=== PATIENT | female | born 1975 | race Caucasian/White ===

== ENCOUNTER → 2024-07-07 07:50 | Outpatient (REF) | payer OTHER, SELFPAY | LOC: HWWDC 07:50 | PROVIDERS: ATTENDING PHYSICIAN Obstetrics & Gynecology | DX: Z12.31 Encounter for screening mammogram for malignant neoplasm of breast (principal) | CPT/HCPCS: 77063; 77067 ==

== ENCOUNTER → 2024-07-17 09:44 | Outpatient (REF) | payer OTHER, SELFPAY | LOC: WDC 09:44 | PROVIDERS: ATTENDING PHYSICIAN Obstetrics & Gynecology | DX: R92.8 Other abnormal and inconclusive findings on diagnostic imaging of breast (principal) | CPT/HCPCS: 76642 ==

== ENCOUNTER → 2025-02-24 13:57 | Outpatient (REF) | payer OTHER, SELFPAY | LOC: HWRAD 13:57 | PROVIDERS: ATTENDING PHYSICIAN Student in an Organized Health Care Education/Training Program | DX: N93.9 Abnormal uterine and vaginal bleeding, unspecified (principal) | CPT/HCPCS: 76830; 76856 ==

== ENCOUNTER 2025-04-03 05:51 | Day surgery (SDC) | payer OTHER, SELFPAY ==
[2025-03-31 08:05] LABS: Hematocrit 23.0 % (37.0-47.0); Hemoglobin 7.0 g/dL (12.0-16.0); Mean Corp Hgb Conc. 30.4 g/dL (33.0-37.0); Mean Corpuscular Volume 78.5 fL (81.0-99.0); Nucleated Red Blood Cells % 0 %; Platelet Count 304 10^3/uL (130-400); Red Cell Dist. Width 13.7 % (11.5-14.5)
[2025-03-31 08:20] LABS: Blood Urea Nitrogen 10 mg/dl (7-17); Calcium 9.0 mg/dl (8.4-10.2); Carbon Dioxide 26 mmol/L (22-30); Chloride 106 mmol/L (98-107); Glucose 96 mg/dl (70-99); Potassium 5.0 mmol/L (3.5-5.1); eGFR > 60.00
[2025-03-31 08:26] LABS: Sodium 137 mmol/L (135-145)
[2025-03-31 08:30] LABS: Beta HCG Quantitative < 2.39 mIU/ml
--- NOTE | 2025-03-31 09:30 | PTCARENOTE ---
Hgb 7.0 collected 03/31/25; Lanny at 's office was notified.
[2025-04-03] VITALS (7 sets, daily range): BP systolic 108–135; BP diastolic 57–80; BMI 21.8
[2025-04-03] MEDS: NORMOSOL-R/PLASMALYTE-A 1000 IV (06:35)
[2025-04-03] MEDS: NEURONTIN 300 MG PO (06:35)
[2025-04-03] MEDS: TYLENOL 1000 MG PO (06:35)
--- NOTE | 2025-04-03 07:42 | W.IMMPOSTOP ---
Surgical Immed Post Op Note
-
Primary Surgeon: Lizabeth Flores DO
Assisting Surgeon:none
Pre-op Diagnosis: Abnormal uterine bleeding; possible endometrial polyp
Post-op Diagnosis: same; no endometrial polyp
Procedure Performed: Hysteroscopy D&C
Anesthesia Type: general LMA Dr. Soriano
Specimen / Cultures: 1. endocervical curettings 2. endometrial curettings
Estimated Blood Loss: 2ml
Fluid deficit: 25mL NSS
Complications: none
Operative Findings: Uterus sounds to 9cm; bilateral tubal ostia seen. No evidence of polyp or mass.
Stable to recovery.
Dictated.
== END 2025-04-03 08:45 | disposition home or self-care (01) ==
LOC: SDS 05:51
PROVIDERS: ATTENDING PHYSICIAN Obstetrics & Gynecology
DX: N93.9 Abnormal uterine and vaginal bleeding, unspecified (principal)
CPT/HCPCS: 58558; 36415; 80048; 84702; 85025; 86850; 86900; 86901; 88305; 88341; 88342; 93005